=== PATIENT | male | born 1995 | race Caucasian/White ===

== ENCOUNTER 2016-10-11 20:43 | Emergency (ER) | payer MEDICAID ==
[~2016-10-11 20:43] MED LIST: ADDERALL 20 MG20 MG PO; ALEVE220 M1 PO; BIAXIN500 M1 PO; LEXAPRO10 MG PO; LEXAPRO20 MG PO; OXYCODONE/APAP PO; RISPERDAL1 M1 PO; SLEEPING PILL PO
[2016-10-11] MEDS ORDERED: GUAIFENESIN-COD10 ML PO (21:07)
== END 2016-10-11 21:12 ==
LOC: EDMED 20:43
DX: J06.9 Acute upper respiratory infection, unspecified (principal); F17.200 Nicotine dependence, unspecified, uncomplicated